=== PATIENT | male | born 1940 | race Caucasian/White ===

== ENCOUNTER 2017-01-06 06:26 | Emergency (ER) | payer OTHER ==
[~2017-01-06] VITALS: Ht 172.7 cm; Wt 111.8 kg
[~2017-01-06 06:26] MED LIST: ADULT LOW DOSE81 M1 PO; CELECOXIB200 MG PO; COUMADIN1 MG PO; GLIPIZIDE5 MG PO; GLUCOPHAGE1000 MG PO; HYDROCHLOROTHIA25 MG PO; HYDROCODON-ACE1 EAC7 PO; IRON325 M1 PO; JANUVIA100 MG PO; LISINOPRIL40 MG PO; LO-DOSE ASPIRIN81 M1 PO; LOVENOX40 MG/0.4 SC; METOPROLOL TART50 MG PO; NITROQUICK0.4 MG PO; PLAVIX75 MG PO; PRILOSEC20 MG PO; PRINIVIL40 MG PO; SIMVASTATIN20 M1 PO; SIMVASTATIN40 MG PO; TOPROL XL50 MG PO; TYLENOL EXTRA500 MG PO
[2017-01-06 07:46] LABS: EOSINOPHIL (%) 2.6 % (0-5); EOSINOPHIL COUNT 0.2 K/uL (0-0.3); HEMATOCRIT 33.7 % (38.0-50.0); IMMATURE GRANULOCYTE (%) 0.4 % (0.0-0.7); INSTRUMENT ABS NEUTROPHIL CT 4.4 K/uL; LYMPHOCYTE COUNT 1.5 K/uL (1.0-2.8); MCH 30.7 PG (29.0-34.0); MCHC 31.8 G/DL (30.0-36.0); MCV 96.8 FL (86-99); MEAN PLAT.VOLUME 10.1 uM^3 (9.0-12.4); MONOCYTE (%) 10.5 % (3-12); MONOCYTE COUNT 0.7 K/uL (0-0.8); NEUTROPHIL (%) 63.8 % (45-76); NEUTROPHIL COUNT 4.4 K/uL (1.8-6.4); PLATELET COUNT 318 K/uL (156-360); RBC DIS.WIDTH-CV 13.7 % (11.8-14.6); RBC DIS.WIDTH-SD 49.3 % (39-53); RED BLOOD COUNT 3.48 M/uL (4.00-5.50); WHITE BLOOD COUNT 6.9 K/uL (4.1-10.2)
[2017-01-06 07:54] LABS: CHLORIDE 103 mEq/L (99-109); POTASSIUM 3.2 mEq/L (3.7-5.4); SODIUM 137 mEq/L (136-147)
[2017-01-06 07:55] LABS: GLUCOSE 140 mg/dL (70-99)
[2017-01-06 07:57] LABS: ANION GAP 10 MEQ/L (2-14)
[2017-01-06 07:59] LABS: GFR ESTIMATE (CALCULATED) 52 mL/min/
[2017-01-06 08:00] LABS: UREA NITROGEN (BUN) 25 mg/dL (9-23)
[2017-01-06 08:40] LABS: ADD MIUA? YES; BILIRUBIN NEGATIVE; BLOOD NEGATIVE; COLOR YELLOW ((YELLOW)); GLUCOSE (STRIP) NEGATIVE; KETONES NEGATIVE; LEUKOCYTES NEGATIVE; NITRITE NEGATIVE; PROTEIN (STRIP) 100; SPECIFIC GRAVITY 1.015 (1.000-1.030)
[2017-01-06 08:47] LABS: BACTERIA NONE SEEN /HPF; EPITHELIAL CELLS RARE /HPF; MUCUS NONE SEEN /LPF; RED BLOOD CELLS 0-5 /HPF (0-5); WHITE BLOOD CELLS 0-5 /HPF (0-5)
[2017-01-06] MEDS ORDERED: FUROSEMIDE40 MG PO (10:35)
[2017-01-06] MEDS ORDERED: ASPIRIN81 M2 PO (10:36)
[2017-01-06] MEDS ORDERED: LEVAQUIN500 MG PO (11:59)
[2017-01-06] MEDS ORDERED: TYLENOL WITH C1 EACH PO (11:59)
[2017-01-06 12:16] VITALS: BP 140/90
== END 2017-01-06 13:35 | disposition home or self-care (01) ==
LOC: EME → EDBD 06:26 → EME 06:26
PROVIDERS: Emergency Medicine
DX: K80.20 Calculus of gallbladder without cholecystitis without obstruction (principal); R10.31 Right lower quadrant pain; I10 Essential (primary) hypertension; E78.5 Hyperlipidemia, unspecified; E11.9 Type 2 diabetes mellitus without complications; Z95.5 Presence of coronary angioplasty implant and graft; Z87.442 Personal history of urinary calculi; Z79.82 Long term (current) use of aspirin; Z87.891 Personal history of nicotine dependence
CPT/HCPCS: 74177; 76705; 80048; 81003; 85025; 99281; 99284; J7030

== ENCOUNTER 2017-03-16 10:06 | Inpatient (IN) | payer OTHER ==
[~2017-03-16] VITALS: Ht 170.2 cm; Wt 97.7 kg
[~2017-03-16 10:06] MED LIST changes: +ASPIRIN81 M2 PO; +FUROSEMIDE40 MG PO; +LEVAQUIN500 MG PO; +TYLENOL WITH C1 EACH PO
[2017-03-16 10:45] LABS: HEMATOCRIT 34.7 % (38.0-50.0); MCHC 31.4 G/DL (30.0-36.0); MCV 95.6 FL (86-99); MEAN PLAT.VOLUME 10.1 uM^3 (9.0-12.4); PLATELET COUNT 328 K/uL (156-360); RBC DIS.WIDTH-CV 18.4 % (11.8-14.6); RBC DIS.WIDTH-SD 65.1 % (39-53); RED BLOOD COUNT 3.63 M/uL (4.00-5.50); WHITE BLOOD COUNT 8.1 K/uL (4.1-10.2)
[2017-03-16 11:15] LABS: ANION GAP 7 MEQ/L (2-14); CHLORIDE 99 MEQ/L (99-109); GFR ESTIMATE (CALCULATED) > 59 mL/min/; GLUCOSE 134 mg/dL (70-99); POTASSIUM 3.2 MEQ/L (3.7-5.4); SAMPLE HEMOLYSIS CHECK 0; SAMPLE ICTERIC CHECK 0; SAMPLE LIPEMIA CHECK 0; SODIUM 134 MEQ/L (136-147); UREA NITROGEN (BUN) 24 mg/dL (9-23)
[2017-03-16 11:17] LABS: TROP-I INTERPRETATION NEGATIVE; TROPONIN-I 0.04 ng/mL (0.0-0.30)
[2017-03-16] MEDS ORDERED: LO-DOSE ASPIRIN81 M2 PO (15:49)
[2017-03-16] MEDS ORDERED: TYLENOL EXTRA500 MG PO (15:49)
[2017-03-16] MEDS ORDERED: GLIPIZIDE XL5 MG PO (15:50)
[2017-03-16] MEDS ORDERED: KLOR-CON M2020 MEQ PO (15:51)
[2017-03-16 16:28] VITALS: BP 145/93
[2017-03-16 16:48] LABS: POINT-OF-CARE METER ID UU14188577
[2017-03-16 17:05] LABS: TROP-I INTERPRETATION NEGATIVE; TROPONIN-I 0.03 ng/mL (0.0-0.30)
[2017-03-16 20:16] VITALS: BP 147/86
[2017-03-16 21:54] LABS: POINT-OF-CARE METER ID UU14149397
[2017-03-16 23:48] VITALS: BP 124/62
[2017-03-17 01:16] LABS: TROP-I INTERPRETATION NEGATIVE; TROPONIN-I 0.02 ng/mL (0.0-0.30)
[2017-03-17 03:57] VITALS: BP 126/75
[2017-03-17 07:40] VITALS: BP 131/78
[2017-03-17 09:01] LABS: ANION GAP 11 MEQ/L (2-14); CHLORIDE 97 MEQ/L (99-109); GFR ESTIMATE (CALCULATED) > 59 mL/min/; GLUCOSE 136 mg/dL (70-99); POTASSIUM 3.1 MEQ/L (3.7-5.4); SAMPLE HEMOLYSIS CHECK 0; SAMPLE ICTERIC CHECK 0; SAMPLE LIPEMIA CHECK 0; SODIUM 138 MEQ/L (136-147); UREA NITROGEN (BUN) 24 mg/dL (9-23)
[2017-03-17 09:32] LABS: TROP-I INTERPRETATION NEGATIVE; TROPONIN-I 0.03 ng/mL (0.0-0.30)
[2017-03-17] MEDS ORDERED: KLOR-CON20 MEQ PO (10:35)
[2017-03-17 11:46] VITALS: BP 138/80
[2017-03-17 12:40] LABS: Estimated Average Glucose 146 mg/dL (70-123); HEMOGLOBIN A1c (GLYCOHEMOGLOB) 6.7 % HGB (Below 5.7)
== END 2017-03-17 13:08 | disposition home or self-care (01) | DRG 293 ==
LOC: EME 10:06 → EDOF 14:43 → 3EAST 14:43
PROVIDERS: Family Medicine
DX: I11.0 Hypertensive heart disease with heart failure (principal); I50.23 Acute on chronic systolic (congestive) heart failure; E11.65 Type 2 diabetes mellitus with hyperglycemia; E87.6 Hypokalemia; I25.10 Atherosclerotic heart disease of native coronary artery without angina pectoris; I48.0 Paroxysmal atrial fibrillation; K21.9 Gastro-esophageal reflux disease without esophagitis; E78.5 Hyperlipidemia, unspecified; Z66 Do not resuscitate; Z96.642 Presence of left artificial hip joint; Z96.651 Presence of right artificial knee joint; Z87.891 Personal history of nicotine dependence; Z95.5 Presence of coronary angioplasty implant and graft; Z79.82 Long term (current) use of aspirin; Z79.84 Long term (current) use of oral hypoglycemic drugs
CPT/HCPCS: 71020; 80048; 82948; 83036; 83880; 84484; 85027; 93005; 93306; 99281; 99285; J1815; J1940

== ENCOUNTER 2017-03-20 10:13 | Observation (INO) | payer OTHER ==
[~2017-03-20] VITALS: Ht 172.7 cm; Wt 95.3 kg
[~2017-03-20 10:13] MED LIST changes: +GLIPIZIDE XL5 MG PO; +KLOR-CON M2020 MEQ PO; +KLOR-CON20 MEQ PO; +LO-DOSE ASPIRIN81 M2 PO
[2017-03-20 11:26] LABS: EOSINOPHIL (%) 1.4 % (0-5); EOSINOPHIL COUNT 0.1 K/uL (0-0.3); HEMATOCRIT 34.3 % (38.0-50.0); IMMATURE GRANULOCYTE (%) 0.3 % (0.0-0.7); INSTRUMENT ABS NEUTROPHIL CT 5.8 K/uL; MCH 30.4 PG (29.0-34.0); MCHC 31.8 G/DL (30.0-36.0); MCV 95.8 FL (86-99); MEAN PLAT.VOLUME 10.1 uM^3 (9.0-12.4); MONOCYTE (%) 9.1 % (3-12); MONOCYTE COUNT 0.8 K/uL (0-0.8); NEUTROPHIL (%) 66.5 % (45-76); NEUTROPHIL COUNT 5.8 K/uL (1.8-6.4); PLATELET COUNT 337 K/uL (156-360); RBC DIS.WIDTH-CV 18.3 % (11.8-14.6); RBC DIS.WIDTH-SD 64.2 % (39-53); RED BLOOD COUNT 3.58 M/uL (4.00-5.50); WHITE BLOOD COUNT 8.8 K/uL (4.1-10.2)
[2017-03-20 11:37] LABS: CHLORIDE 101 mEq/L (99-109); POTASSIUM 3.6 mEq/L (3.7-5.4); SODIUM 139 mEq/L (136-147)
[2017-03-20 11:38] LABS: MAGNESIUM 1.7 mg/dL (1.3-2.7)
[2017-03-20 11:40] LABS: GLUCOSE 106 mg/dL (70-99)
[2017-03-20 11:41] LABS: ANION GAP 9 MEQ/L (2-14)
[2017-03-20 11:42] LABS: TOTAL BILIRUBIN 1.1 mg/dL (0.0-1.0)
[2017-03-20 11:43] LABS: ALKALINE PHOSPHATASE 102 IU/L (3-129); GFR ESTIMATE (CALCULATED) 52 mL/min/
[2017-03-20 11:44] LABS: UREA NITROGEN (BUN) 31 mg/dL (9-23)
[2017-03-20 11:47] LABS: TROP-I INTERPRETATION NEGATIVE; TROPONIN-I 0.02 ng/mL (0.0-0.30)
[2017-03-20 13:07] LABS: ADD MIUA? YES; BILIRUBIN NEGATIVE; BLOOD NEGATIVE; COLOR YELLOW ((YELLOW)); GLUCOSE (STRIP) NEGATIVE; KETONES NEGATIVE; LEUKOCYTES NEGATIVE; NITRITE NEGATIVE; PROTEIN (STRIP) 100; SPECIFIC GRAVITY 1.012 (1.000-1.030); UROBILINOGEN 0.2 MG/DL (0.2-1.0)
[2017-03-20 13:13] LABS: BACTERIA NONE SEEN /HPF; EPITHELIAL CELLS NONE SEEN /HPF; MUCUS NONE SEEN /LPF; RED BLOOD CELLS 0-5 /HPF (0-5); UCUL ADDED? NO; WHITE BLOOD CELLS 0-5 /HPF (0-5)
[2017-03-20] MEDS ORDERED: LASIX40 MG PO (16:28)
[2017-03-20 16:50] VITALS: BP 125/71
[2017-03-20 18:27] LABS: TROP-I INTERPRETATION NEGATIVE; TROPONIN-I 0.02 ng/mL (0.0-0.30)
[2017-03-20 19:10] VITALS: BP 120/67
[2017-03-20 23:46] VITALS: BP 124/80
[2017-03-21 01:37] LABS: TROP-I INTERPRETATION NEGATIVE; TROPONIN-I 0.02 ng/mL (0.0-0.30)
[2017-03-21 04:38] VITALS: BP 149/88
[2017-03-21 09:00] VITALS: BP 121/72
[2017-03-21 12:00] VITALS: BP 151/92
[2017-03-21] MEDS ORDERED: LOPRESSOR25 MG PO (13:48)
[2017-03-21 14:20] LABS: POINT-OF-CARE METER ID UU13113781
== END 2017-03-21 15:43 | disposition home or self-care (01) ==
LOC: EME 10:13 → EDOF 14:11 → 4EAST 14:11 → EDOF 14:11 → 4EAST 16:52
PROVIDERS: Emergency Medicine; Hospitalist
DX: R53.1 Weakness (principal); R00.1 Bradycardia, unspecified; E87.6 Hypokalemia; J44.9 Chronic obstructive pulmonary disease, unspecified; I13.0 Hypertensive heart and chronic kidney disease with heart failure and stage 1 through stage 4 chronic kidney disease, or unspecified chronic kidney disease; E11.22 Type 2 diabetes mellitus with diabetic chronic kidney disease; N18.3 Chronic kidney disease, stage 3 (moderate); I50.22 Chronic systolic (congestive) heart failure; E78.5 Hyperlipidemia, unspecified; I25.10 Atherosclerotic heart disease of native coronary artery without angina pectoris; Z87.891 Personal history of nicotine dependence; Z96.643 Presence of artificial hip joint, bilateral; Z82.3 Family history of stroke; Z80.6 Family history of leukemia; Z91.09 Other allergy status, other than to drugs and biological substances
CPT/HCPCS: 71020; 80053; 81003; 82948; 83735; 83880; 84484; 85025; 93005; 93970; 99281; 99285; G0378; J1650